=== PATIENT | male | born 1955 | race Caucasian/White ===

== ENCOUNTER 2023-08-29 09:30 | Outpatient (OUT) | payer MEDICARE, SELFPAY ==
[2023-08-29 09:50] LABS: Basophils Percent Auto 1.1 % (0.2-2.0); Eosinophils Absolute Auto 0.2 10^3/uL (0.0-0.7); Eosinophils Percent Auto 5.6 % (0.9-7.0); Hematocrit 42.3 % (42.0-54.0); Hemoglobin 13.7 g/dL (14.0-18.0); Immature Granulocytes Abs Auto 0.01 10^3/uL (0.00-0.03); Immature Granulocytes Pct Auto 0.3 % (0.0-0.5); Lymphocytes Absolute Auto 1.2 10^3/uL (1.2-3.8); Lymphocytes Percent Auto 31.9 % (20.5-60.0); Mean Corpuscular HGB Conc 32.4 g/dL (29.9-35.2); Mean Corpuscular Hemoglobin 31.5 pg (25.9-34.0); Mean Corpuscular Volume 97.2 fL (80.0-94.0); Mean Platelet Volume 9.4 fL (9.5-13.5); Monocytes Absolute Auto 0.5 10^3/uL (0.3-0.8); Monocytes Percent Auto 13.3 % (1.7-12.0); Neutrophils Absolute Auto 1.8 10^3/uL (1.4-6.5); Neutrophils Percent Auto 47.8 % (43.0-75.0); Platelet Count 189 10^3/uL (150-450); Red Blood Count 4.35 10^6/uL (4.70-6.10); Red Cell Distribution Width 12.6 % (11.0-15.0); White Blood Count 3.8 10^3/uL (4.0-11.0)
[2023-08-29 10:14] LABS: Estimated Average Glucose 123 mg/dL; Glycohemoglobin A1C 5.9 % (4.5-6.2)
[2023-08-29 10:16] LABS: Alanine Aminotransferase 38 U/L (16-63); Albumin Globulin Ratio 1.3; Alkaline Phosphatase 89 U/L (46-116); Anion Gap 11.2; Aspartate Amino Transferase 25 U/L (15-37); BUN Creatinine Ratio 21.2; Bilirubin Total 1.1 mg/dL (0.2-1.0); Calcium 8.8 mg/dL (8.5-10.1); Carbon Dioxide 31.4 mmol/L (21.0-32.0); Chloride 106 mmol/L (98-107); Chol HDL Ratio 2.3; Cholesterol 130 mg/dL (<=200); Estimated GFR (African America >60 (>=60); Estimated GFR (Non-African Ame >60 (>=60); Free T3 2.06 pg/mL (2.18-3.98); Globulin 3.1 g/dL; Glucose 107 mg/dL (74-106); HDL Cholesterol 57 mg/dL (40-60); Potassium 4.6 mmol/L (3.5-5.1); Sodium 144 mmol/L (136-145); Thyroid Stimulating Hormone 2.013 uIU/mL (0.358-3.740); Total Protein 7.1 g/dL (6.4-8.2); Triglycerides 35 mg/dL (<=150)
== END 2023-08-29 09:31 | disposition home or self-care (01) ==
LOC: LAB 09:30
PROVIDERS: PCP Family Medicine; Visit Provider Family Medicine
DX: M25.50 Pain in unspecified joint (principal); I10 Essential (primary) hypertension; D12.6 Benign neoplasm of colon, unspecified; E78.5 Hyperlipidemia, unspecified; R73.09 Other abnormal glucose; Z12.5 Encounter for screening for malignant neoplasm of prostate
CPT/HCPCS: 36415; 80053; 80061; 83036; 84436; 84443; 84481; 85025; G0103

== ENCOUNTER 2023-09-10 10:13 | Outpatient (OUT) | payer MEDICARE, SELFPAY ==
[2023-09-10 10:30] LABS: Basophils Percent Auto 0.1 % (0.2-2.0); Eosinophils Percent Auto 0.1 % (0.9-7.0); Hematocrit 38.2 % (42.0-54.0); Hemoglobin 12.9 g/dL (14.0-18.0); Immature Granulocytes Abs Auto 0.07 10^3/uL (0.00-0.03); Lymphocytes Absolute Auto 0.7 10^3/uL (1.2-3.8); Lymphocytes Percent Auto 9.6 % (20.5-60.0); Mean Corpuscular HGB Conc 33.8 g/dL (29.9-35.2); Mean Corpuscular Volume 94.8 fL (80.0-94.0); Mean Platelet Volume 9.7 fL (9.5-13.5); Monocytes Absolute Auto 0.4 10^3/uL (0.3-0.8); Monocytes Percent Auto 5.4 % (1.7-12.0); Neutrophils Absolute Auto 6.1 10^3/uL (1.4-6.5); Neutrophils Percent Auto 83.8 % (43.0-75.0); Platelet Count 169 10^3/uL (150-450); Red Blood Count 4.03 10^6/uL (4.70-6.10); Red Cell Distribution Width 12.3 % (11.0-15.0); White Blood Count 7.3 10^3/uL (4.0-11.0)
[2023-09-10 11:16] LABS: Free T3 1.95 pg/mL (2.18-3.98); Thyroid Stimulating Hormone 0.868 uIU/mL (0.358-3.740)
== END 2023-09-10 10:14 | disposition home or self-care (01) ==
LOC: LAB 10:14
PROVIDERS: PCP Family Medicine; Visit Provider Family Medicine
DX: R53.83 Other fatigue (principal)
CPT/HCPCS: 36415; 84436; 84443; 84481; 85025

== ENCOUNTER 2023-10-17 09:15 | Outpatient (OUT) | payer MEDICARE, SELFPAY ==
[2023-10-17 10:29] LABS: Free T4 0.78 ng/dL (0.76-1.46)
== END 2023-10-17 09:16 | disposition home or self-care (01) ==
LOC: LAB 09:17
PROVIDERS: PCP Family Medicine; Visit Provider Family Medicine
DX: E03.9 Hypothyroidism, unspecified (principal)
CPT/HCPCS: 36415; 84439; 84443

== ENCOUNTER 2023-11-03 14:10 | Outpatient (OUT) | payer MEDICARE, SELFPAY | END 2023-11-03 14:11 | disposition home or self-care (01) | LOC: PST 14:11 | PROVIDERS: PCP Family Medicine; Visit Provider Surgery | DX: Z86.010 Personal history of colon polyps (principal) ==

== ENCOUNTER 2023-11-05 07:00 | Day surgery (SDC) | payer MEDICARE, SELFPAY ==
--- NOTE | 2023-11-05 | OP_ITS ---
OPERATION DATE: 11/05/2023 PREOPERATIVE DIAGNOSIS: Personal history of colon polyps. Family history of colon cancer. POSTOPERATIVE DIAGNOSIS: Normal colonoscopy to cecum. PROCEDURE: Colonoscopy to cecum. SURGEON: Zurdo Chambers M.D. ANESTHESIA: Monitored anesthesia care. ESTIMATED BLOOD LOSS: Zero. INDICATIONS AND CONSENT: Patient is a 67-year-old male presents for colorectal screening. Indications, risks, benefits, alternatives of proceeding with colonoscopy were explained extensively to the patient, including the risks of bleeding, colon perforation or anesthetic complications. All of his questions were answered. Informed consent was obtained. PROCEDURE: Patient brought to the operating room, placed in the left lateral decubitus position. Monitored anesthesia care was provided. Rectal exam was performed which showed no masses or blood. The scope was inserted into the anal canal. Under direct visualization was advanced. With the aid of abdominal compression, it was advanced to the cecum where cecal markings were clearly identified. Prep was noted to be good, but with some vegetable matter throughout the colon that was able to be partially irrigated clear. Upon withdrawal of the scope, mucosal surfaces were carefully examined. There were no mass lesions or polyps. No inflammatory changes or ulcerations. No significant diverticulosis. The scope was retroflexed in the anal canal. There was no significant hemorrhoidal disease. Scope was then withdrawn. Patient tolerated procedure well, was sent to recovery room in good condition. Follow up colonoscopy should be in five years. CC: Marcus Kingsley M.D. [facility]
[2023-11-05 07:00] VITALS: BP 139/67; PULSE 85; RESP 18; TEMP 36.3; O2SAT 95; BMI 30.9
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
[2023-11-05] MEDS: LACTATED RINGER'S SOLUTION 1,000 ML 50 ML IV (07:26)
[2023-11-05 08:14] VITALS: BP 122/72; PULSE 70; RESP 16; O2SAT 98
[2023-11-05 08:32] VITALS: BP 117/63; PULSE 72; RESP 16; O2SAT 98
== END 2023-11-05 08:44 | disposition home or self-care (01) ==
PROVIDERS: PCP Family Medicine; Visit Provider Surgery
PROC: (CPT 45378; principal; 2023-11-05 08:00)
DX: Z86.010 Personal history of colon polyps (principal); Z80.0 Family history of malignant neoplasm of digestive organs; I10 Essential (primary) hypertension; E03.9 Hypothyroidism, unspecified; E66.9 Obesity, unspecified; Z68.31 Body mass index [BMI] 31.0-31.9, adult; Z96.641 Presence of right artificial hip joint
CPT/HCPCS: 45378; J2704

== ENCOUNTER 2024-05-27 17:06 | Emergency (ER) | payer MEDICARE, SELFPAY ==
--- NOTE | 2024-05-27 17:15 | XR_ITS ---
The [address] [address] Patient Name: JORGE PATE MRN: [id number] date: 1955 Sex: M Assigned Patient Location: ED.MAIN Current Patient Location: ER Accession/Order Number: [id number] Exam Date: 05/27/2024 17:30 Report Date: 05/27/2024 18:02 At the request of: GOLDEN AC Procedure: XR lumbar spine 2-3V EXAM: XR lumbar spine 2-3V HISTORY: fall COMPARISON: None. TECHNIQUE: 3 views lumbar spine. FINDINGS: Bones: No radiographic evidence of fracture. Normal vertebral body heights. No aggressive appearing lesion. Alignment: No pathologic listhesis or scoliotic curvature. Degenerative findings: Spondylosis and severe disc desiccation of the lumbar spine.. Additional findings: None. XR/XR lumbar spine 2-3V IMPRESSION: No acute fracture. Electronically authenticated by: RAE ESPINOSA Date: 05/27/2024 18:02
--- NOTE | 2024-05-27 17:15 | XR_ITS ---
The [address] [address] Patient Name: JORGE PATE MRN: [id number] date: 1955 Sex: M Assigned Patient Location: ED.MAIN Current Patient Location: ER Accession/Order Number: [id number] Exam Date: 05/27/2024 17:30 Report Date: 05/27/2024 18:01 At the request of: GOLDEN CA Procedure: XR knee LT 3V IMAGES REVIEWED: XR knee LT 3V COMPARISON: None available. CLINICAL INDICATION: fall FINDINGS/IMPRESSION: 1. No evidence of acute osseous abnormality of the left knee. 2. No significant effusion. 3. Mild tricompartmental degenerative change left knee. 4. Slight anterior knee soft tissue swelling. Electronically authenticated by: CATALINA SCHWAB Date: 05/27/2024 18:01
--- NOTE | 2024-05-27 17:15 | XR_ITS ---
The [address] [address] Patient Name: JORGE PATE MRN: [id number] date: 1955 Sex: M Assigned Patient Location: ED.MAIN Current Patient Location: Accession/Order Number: [id number] Exam Date: 05/27/2024 17:30 Report Date: 05/27/2024 18:03 At the request of: GOLDEN AC Procedure: XR hip LT 2V w/ pelvis IMAGES REVIEWED: XR hip LT 2V w/ pelvis COMPARISON: None available. CLINICAL INDICATION: fall FINDINGS/IMPRESSION: 1. No radiographic evidence of acute osseous abnormality of the left hip/pelvis. 2. Mild-moderate degenerative change left hip. 3. Partially visualized right total hip arthroplasty without evidence of complication. 4. Enthesopathic change left lesser trochanter. 5. Please refer to same-day x-ray L-spine report. 6. Left hip soft tissue swelling. Electronically authenticated by: CATALINA SCHWAB Date: 05/27/2024 18:03
[2024-05-27 17:20] VITALS: BP 145/77; PULSE 68; TEMP 36.4; O2SAT 96; BMI 29.3
--- OUTSIDE RECORDS SUMMARY | 2024-05-27 17:30 | XMS_ITS | CCD ---
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 bleeds. Cardiovascular: normal blood pressure, no chest pain, regular heartbeat, no heart murmur. Respiratory: no shortness of breath, no cough, no asthma, no wheezing. Gastrointestinal: no nausea, no vomiting, no diarrhea, no constipation, no blood in stool, no change in bowel habits, no abdominal pain, no hepatitis. Genitourinary: no kidney stones, no urine infection, no dysuria. Musculoskeletal: no pain, no weakness. Skin: no changing moles, no rash, no skin lumps. Neurologic: no seizures, no epilepsy, no headache. Psychiatric: no emotional or psychiatric problem. Heme/Lymph: no bleeding problems, no anemia, no blood clots, no transfusions. Allergy/Immunologic: no swollen lymph nodes/glands, no IV drug abuse. Other: Additional ROS info: Except as noted in the above Review of Systems and in the History of Present Illness, all other systems have been reviewed and are negative or noncontributory. Physical Exam Vitals & Measurements HR: 72(Peripheral) RR: 16 BP: 126/72 HT: 72 in HT: 182.8 cm WT: 103.8 kg WT: 228.36 lb BMI: 31.06 HEENT: normal conjunctiva, sclera clear, no scleral icterus, EOM intact, PERRLA, oral mucosa moist without lesions. Neck: trachea midline, no mass, symmetric, no thyromegaly or nodules, no adenopathy Respiratory: lungs CTA, respirations non labored. Cardiovascular: regular rate and rhythm, no murmur, no pedal edema or varicosities. Gastrointestinal: soft, non distended, no tenderness, no masses, no palpable hernias, diastasis recti no, no hepatosplenomegaly; normal bs Lymphatic: no cervical adenopathy, no supraclavicular adenopathy. Musculoskeletal: normal gait, digits and nails without infection, nodes, cyanosis, clubbing. Skin: no rashes, no lesions, no ulcers, no subcutaneous nodules, induration. Psychiatric/Neuro: oriented to time, place, person, judgement normal, affect appropriate for age, insight intact, no focal deficits. Tests: , review of old records completed , Discussed surgical options, risks, and possible complications with patient. Assessment/Plan 1. Personal history of colonic polyps (Z86.010: Personal history of colonic polyps) plan colonoscopy under anesthesia, informed consent obtained. 2. Family history of colon cancer in father (Z80.0: Family history of malignant neoplasm of digestive organs) scds Follow-up No qualifying data available Problem List/Past Medical History Ongoing BMI 31.0-31.9,adult Essential hypertension Family history of colon cancer in father History of colon polyps Hypothyroidism Obesity Personal history of colonic polyps Historical No qualifying data Procedure/Surgical History Colonoscopy (08/26/2014), Arthroplasty of right hip. Medications diclofenac sodium 75 mg Oral EC Tab, 75 mg= 1 tab(s), Oral, Daily levothyroxine 25 mcg (0.025 mg) Tab, 25 mcg= 1 tab(s), Oral, Daily lisinopril 40 mg Tab, 40 mg= 1 tab(s), Oral, Daily Allergies Levaquin (Hives) tetracycline (Hives) Social History Alcohol - Denies Alcohol Use, 09/26/2023 Substance Abuse - Denies Substance Abuse, 09/26/2023 Tobacco Never (less than 100 in lifetime) Tobacco Use:. Never Smokeless Tobacco Use:., 09/26/2023 Family History COPD: Father. Heart disease: Mother and Father. Hypertension: Mother. Primary malignant neoplasm of colon: Father. Primary malignant neoplasm of prostate: Father. Stroke: Mother. Immunizations Vaccine Date Status influenza virus vaccine, inactivated 08/12/2023 Recorded SARS-CoV-2 (COVID-19) mRNA BNT-162b2 vax 08/14/2021 Recorded SARS-CoV-2 (COVID-19) mRNA BNT-162b2 vax 12/12/2020 Recorded SARS-CoV-2 (COVID-19) mRNA BNT-162b2 vax 11/20/2020 Recorded [facility] Comment on above: Result Comment: Elec tronically Signed By: KATHYA RUFF, Zurdo Headley\Date and Time Signed: 09/26/23 14:58 EST 01-03-2022 Evaluation note Encounter Date Diagnosis Assessment Notes Dec, Status post right hip replacement (ICD-10 - Z96.641) Dec, Other [facility] at [facility] on 10/08/2021 Doing well Discussed post-op dental prophylaxis. Shared decision made to continue prophylactic antibiotics indefinitely. Follow-up at 1 year post-op for repeat examination and repeat x-rays. Patient instructed to call with any questions or concerns. [facility] Other 03-10-2022 Evaluation note* Encounter Date Diagnosis Assessment Notes Treatment Notes Treatment Clinical Notes Nov, Status post right hip replacement (ICD-10 - Z96.641) Nov, Other [facility] at [facility] on 10/08/2021 Doing well Patient may continue increasing activities as tolerated. Continue taking trbs-rbj-[id number] anti-inflammatories as needed for assistance with swelling and pain associated with the operative extremity. We did discuss prophylactic antibiotics for any invasive procedures and made the mutual decision to take antibiotics prior to invasive procedures moving forward. Follow-up in 6 weeks for repeat examination and repeat x-rays. [facility] Other 02-09-2022 Evaluation note* Encounter Date Diagnosis Assessment Notes Treatment Notes Treatment Clinical Notes Oct, Status post right hip replacement (ICD-10 - Z96.641) Oct, Other [facility] at [facility] on 10/08/2021 Doing well Patient may continue [...] examination and x-rays of the right hip. [facility] Other 01-19-2022 Evaluation note* Encounter Date Diagnosis [...] pathological fracture (ICD-10 - M81.0) Sep, On extermination inspector drug therapy (ICD-10 - Z79.899) Sep, Other 1. Right GEMA Home Medications - DVT prophylaxis: Aspirin - NSAID: Celebrex - Disposition: Same-day discharge Joints Meeting Checklist - Pharmacy: [facility] bed - Approach/Technique : Anterior - Implants: Avenir Complete; G7 - Anesthesia: General - Blocks: Fascia iliac a - Preop Antibiotics: Ancef - TXA: Yes, systemic - Positioning/OR Bed: Supine on [place] bed - Intraop X-ray: Yes - [place]far[place]: [...] elected to proceed with the above surgery. [facility] Other 12-10-2021 Evaluation note* Encounter Date Diagnosis Assessment Notes Treatment Notes Treatment Clinical Notes Aug, Primary osteoarthritis of right hip (ICD-10 - M16.11) Aug, Pre-op examination (ICD-10 - Z01.818) Aug, Age-related osteoporosis without current pathological fracture (ICD-10 - M81.0) Aug, On extermination inspector drug therapy (ICD-10 - Z79.899) Aug, Other 1. Right GEMA - DVT prophylaxis: Aspirin - Antibiotics: Ancef - NSAID: Celebrex - Implants: Avenir Complete; G7 - Disposition: Same day discharge 2. Preop screening labs will be ordered including: - hemoglobin: 14.2 at [place] on 08/07/2021 - serum albumin: 4.0 at [place] on 08/07/2021 - 25-OH Vit D - HgbA1c: 5.5 at [place] on 08/07/2021 - serum cotinine - MRSA [...] or absent clearances could delay their surgery. [facility] Other Evaluation + Plan note No data available for this section General Surgery [facility] Evaluation noteNo assessment information available [facility] Work Phone: Hishsig general Narrative - Reported* Type Description Date Medical History hypertension [facility] Other Hiswyvf general Narrative - Reported* Type Description Date Medical History hypertension Surgical History [facility] [employer] [facility] Other Hospital Discharge instructions No data available for this section General Surgery [place] Progress note No data available for this section General Surgery [place] Summary Purpose Family History No Family History Records Found Relationship Condition Age at Onset Recorded Date/T masha father Malignant neoplasm of colon Unknown Pulmonary emphysema Unknown Glaucoma Unknown Not Specified Osteoporosis Unknown Hypertension Unknown Diabetes mellitus Unknown Advance Directives No Advanced Directives Records Found Advance Directive Response Recorded Date/ Time Advance Directives No August 10:56am Additional Source Comments (unrecognized sect ion and content) No Status Records FoundNo Status Records FoundNo Status Records FoundNo Status Records Found INFORMATION SOURCE (unrecogn ized section and content) DATE CREATED AUTHOR 03/11/2018 [facility] DATE CREATED AUTHOR AUTHOR'S ORGANIZ ATION 09/11/2022 [facility] DATE CREATED AUTHOR AUTHOR'S ORGANIZ ATION 11/14/2023 Khan Hockley [facility] DATE CREATED AUTHOR AUTHOR'S ORGANIZ ATION 11/25/2023 [facility] REASON FOR VISIT (unrecogniz ed section and content) Right Hip PainH&PRecheck Rig ht HipRecheck Right HipRecheck Right Hip Care Teams (unrecognized sec tion and content) Team Status: Inactive Member Role Status Dates [...] BE BASED ON THE PRIMARY CLINICAL RECORDS. [employer] [facility]. provides no warranty or guarantee of the accuracy or completeness of information in this document.
--- NOTE | 2024-05-27 17:39 | ED.FALL1 ---
HPI HPI - Fall General Chief Complaint: Fall Stated Complaint: FALL, LOWER LEFT EXTREMITY PAIN Time Seen by Provider: 05/27/24 17:15 Source: patient Mode of arrival: walk-in Limitations: no limitations History of Present Illness HPI Narrative: 68-year-old male presents here with a chief complaint of left knee pain. Patient states he slipped off a step ladder he was proximately 5 foot in the air and his foot got stuck in the wrong and he twisted and fell to the ground. Denies any head or neck pain. States he did more of a rolling action and rolled off of the ladder onto the ground. Presents today with only knee pain. He has no known lower lumbar pain swelling or other injury. Patient denies head or neck pain. He is alert and oriented. The injury occurred several hours prior to arrival. He states he came here for evaluation because his daughter told him he needed to be evaluated. No acute swelling or deformity appreciated. Related Data Home Medications ?Medication ?Instructions ?Recorded ?Confirmed diclofenac sodium 75 mg 75 mg PO DAILY 11/03/23 11/03/23 tablet,delayed release liothyronine 5 mcg tablet 5 mcg PO DAILY 11/03/23 11/03/23 lisinopril 40 mg tablet 40 mg PO DAILY 11/03/23 11/03/23 Allergies Allergy/AdvReac Type Severity Reaction Status Date / Time levofloxacin [From Levaquin] Allergy Severe Hives Verified 05/27/24 17:20 tetracycline Allergy Severe Hives Verified 05/27/24 17:20 Opioid HPI Opioid Management Most Recent Pain and Opioid Data: Last Pain Scale 3 05/27/24 17:25 Review of Systems ROS Narrative All Systems are negative except as noted/marked.All systems reviewed and otherwise negative PFSH PFS Medical History (Updated 05/27/24 @ 18:12 by Joellen Santos) Obesity ?E66.9 - Obesity, unspecified (ICD-10) Hypothyroidism (acquired) ?E03.9 - Hypothyroidism, unspecified (ICD-10) Hypertension ?I10 - Essential (primary) hypertension (ICD-10) Polyp of colon ?K63.5 - Polyp of colon (ICD-10) Surgical History (Updated 10/27/23 @ 13:30 by Michelle Regan NP) History of total hip replacement ?Z96.649 - Presence of unspecified artificial hip joint (ICD-10) H/O colonoscopy ?Z98.890 - Other specified postprocedural states (ICD-10) Family History (Updated 10/27/23 @ 13:30 by Michelle Regan NP) Other Family history of COPD (chronic obstructive pulmonary disease) Family history of cancer Family history of hypertension Family history of stroke Heart disease Social History (Updated 11/05/23 @ 07:14 by Ramandeep Michaud) Within the past year, how often did you have a drink containing alcohol: never Score interpretation: A score less than 4 is consistent with normal alcohol consumption. 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 General: The patient appears well and in no apparent distress. Patient is resting comfortably on cart. Skin: Warm, dry, no pallor noted. There is no rash noted. Head: Normocephalic, atraumatic Eye: Normal conjunctiva, no drainage, EOMI. PERRL Ears, Nose, Mouth, and Throat: oral mucosa is moist. Nares patent. Mouth without vesicles. Ear canals patent. Tm's without Erythema Cardiovascular: Regular Rate and Rhythm Respiratory: Patient is in no distress, no accessory muscle use, lungs are clear to auscultation, no wheezing, rales or rhonchi Musculoskeletal: No acute redness swelling or dislocation to the left knee, full range of motion, no step-offs , the patient has no evidence of calf tenderness, no pitting edema, symmetrical pulses noted bilaterally Neurological: A&O x4, normal speech Psychiatric: Cooperative Constitutional Vital Signs, click to edit/add: Last Vital Signs Temp 97.6 F 05/27/24 17:20 Pulse 68 05/27/24 17:20 Resp 05/27/24 17:20 BP 145/77 H 05/27/24 17:20 Pulse Ox 96 05/27/24 17:20 O2 Del Method Room Air 05/27/24 17:20 Course Vital Signs Vital signs: Vital Signs Temperature 97.6 F 05/27/24 17:20 Pulse Rate 68 05/27/24 17:20 Respiratory Rate 20 05/27/24 17:20 Blood Pressure 145/77 H 05/27/24 17:20 Pulse Oximetry 96 05/27/24 17:20 Oxygen Delivery Method Room Air 05/27/24 17:20 Temperature 97.6 F 05/27/24 17:20 Pulse Rate 68 05/27/24 17:20 Respiratory Rate 20 05/27/24 17:20 Blood Pressure 145/77 H 05/27/24 17:20 Pulse Oximetry 96 05/27/24 17:20 Oxygen Delivery Method Room Air 05/27/24 17:20 MDM - Fall MDM Narrative Medical decision making narrative: 68-year-old male presents here with a chief complaint of left knee pain. Patient states he slipped off a step ladder he was proximately 5 foot in the air and his foot got stuck in the wrong and he twisted and fell to the ground. Denies any head or neck pain. States he did more of a rolling action and rolled off of the ladder onto the ground. Presents today with only knee pain. He has no known lower lumbar pain swelling or other injury. Patient denies head or neck pain. He is alert and oriented. The injury occurred several hours prior to arrival. He states he came here for evaluation because his daughter told him he needed to be evaluated. No acute swelling or deformity appreciated. Here with chief complaint of fall off of a ladder. He complains of pain to the knee. Denies any pain elsewhere. X-rays of the hip lumbar and knee were performed all were negative. Patient denied the need for pain medications he took Tylenol prior to coming today. He will follow-up with his primary care physician. Patient agrees with plan of care. Diagnosis of fall, knee pain. Differential Diagnosis Differential diagnosis: Likely compression fracture Medical Records Attestation: I reviewed the patient's medical records. Imaging Data knee: Attestation: I have reviewed the pertinent imaging results. Radiologist's impression: ITS Impressions Lumbar Spine X-Ray 05/27/24 17:15 IMPRESSION: No acute fracture. Electronically authenticated by: RAE ESPINOSA Date: 05/27/2024 18:02 lumbar: Radiologist's impression: ITS Impressions Lumbar Spine X-Ray 05/27/24 17:15 IMPRESSION: No acute fracture. Electronically authenticated by: RAE ESPINOSA Date: 05/27/2024 18:02 Discharge Plan Discharge Chief Complaint: Fall Clinical Impression: Acute knee pain, Fall Patient Disposition: Home, Self-Care Time of Disposition Decision: 18:12 Condition: Good Prescriptions / Home Meds: No Action diclofenac sodium 75 mg tablet,delayed release (DR/EC) 75 mg PO DAILY lisinopril 40 mg tablet 40 mg PO DAILY liothyronine 5 mcg tablet 5 mcg PO DAILY Print Language: Mexican Instructions: Fall Prevention for Older Adults (ED), Knee Pain (ED), Fall Prevention (ED) Referrals: Marcus Kingsley MD [Primary Care Provider] - 1 week Discharge Date/Time: 05/27/24 18:27
== END 2024-05-27 18:27 | disposition home or self-care (01) ==
PROVIDERS: Emergency Provider Emergency Medicine; PCP Family Medicine
DX: M25.562 Pain in left knee (principal); M47.816 Spondylosis without myelopathy or radiculopathy, lumbar region
CPT/HCPCS: 72100; 73502; 73562; 99284

== ENCOUNTER 2024-09-03 08:56 | Outpatient (OUT) | payer MEDICARE, SELFPAY ==
--- OUTSIDE RECORDS SUMMARY | 2024-09-03 09:04 | XMS_ITS | CCD ---
Author Organization [facility] Care Team Providers Care Jack Frame Tender Name Role Phone ROHIT ARREOLA Unavailable Unavailable Mac Araya II FLAKO, DR VALENZUELA Admitting Unavailable FLAKO, DR VALENZUELA Attending Unavailable FLAKO, DR VALENZUELA Primary Care Unavailable FLAKO, DR VALENZUELA Consulting Unavailable FLAKO, DR VALENZUELA Admitting Unavailable FLAKO, DR VALENZUELA Attending Unavailable FLAKO, DR VALENZUELA Primary Care Unavailable FLAKO, DR VALENZUELA Consulting Unavailable MD Bianca Kingsley Primary Care Provider MD Mac Araya II Attending Provider Bianca Kingsley Primary Care Physician Zurdo RASHEED Attending Unavailable Bianca Kingsley Referring Unavailable Zurdo RASHEED Attending Unavailable MD Bianca Kingsley Primary Care Provider MD Mac Araya II Attending Provider [phone] Bianca Kingsley Primary Care Unavailable Mac Araya II Admitting UnavailMac Mistry II Attending Bianca Wilkes Primary Care Unavailable Mac Araya II Admitting Unavailabl e [place] palafox II Attending Unavailabl e [place] palafox II Admitting Unavailanaid e Mac Araya II Attending UnavailBianca Nowak Primary Care Unavailable Allergies Allergy Classification Reported Allergen(s) Allergy Type Date of Onset Reaction(s) Facility (8 sources) Tetracycline; Translations: [tetracycline] Drug Allergy 2 rash, [facility] (disorder) [facility] (1 source) Tetracycline Drug Allergy 4 [facility] Repository (2 sources) levoFLOXacin; Translations: [levofloxacin] Drug Allergy Weal (disorder) [facility] [place] (1 source) Tetracycline Drug Allergy [facility] Repository Medications Current Medications Medication Drug Class(es) Dates Sig (Normalized) Sig (Original) acetaminophen 500 mg oral tablet (3 sources) Start: 10-03-2021 take 2 tablets by mouth every eight hours for pain Acetaminophen 500 MG 2 tablets for pain Orally every 8 hrs for 30 days MED TO BED UPON DISCHARGE DOS:10/08/2021 Sep, Active cholecalciferol 0.01 mg oral capsule (3 sources) Vitamin D Start: 09-26-2021 take 1 capsule by mouth once daily Cholecalciferol (Vitamin D3) (Vitamin D3) 10 mcg (400 unit) Capsule Active 100 MCG PO Daily September 26, 2021 1:00am diclofenac sodium 0.01 mg/mg topical gel (10 sources) Nonsteroidal Anti-inflammatory Drug Start: 06-21-2024 Diclofenac Sodium Active 2 GM TOPICAL as directed 10 14June 21, 2024 12:00am apply small amount to affected area 4-5 times per day Start: 09-26-2021 take 75 mg by mouth once daily at bedtime Diclofenac Sodium Active 75 MG PO Daily at bedtime September 26, 2021 1:00am take 1 tablet by wesley th every twelve hours Diclofenac Sodium 75 MG 1 tablet as needed Orally Twice a day Not-Taking fexofenadine / Pseudoephedrine (3 sources) alpha-Adrenergic Agonist, Histamine-1 Receptor Antagonist Start: 09-26-2021 take 1 tablet by mouth once daily in the morning, then take 1 tablet by mouth every twenty-four hours Fexofenadine-Pseudoephedrine (Ifeoma-D 24 Hour) 180-240 mg Tablet Extended Release 24 Hr Active 1 TAB PO Every morning September 26, 2021 1:00am Start: 09-26-2021 take 1 tablet by wesley th once daily in the morning, then take 1 tablet by mouth every twenty-four hours Fexofenadine-Pseudoephedrine (Ifeoma-D 24 Hour) 180-240 mg Tablet Extended Release 24 Hr Active 1 TAB PO Every morning September 26, 2021 12:00am levothyroxine sodium 0.025 mg oral tablet (1 source) l-Thyroxine Start: 09-26-2023 take 1 tablet by mouth once daily levothyroxine 25 mcg (0.025 mg) Tab 25 mcg = 1 tab(s), Oral, Daily, Refills(s) 0 Start Date: 09/26/23 Status: Ordered liothyronine (2 sources) l-Triiodothyronine Start: 06-21-2024 Liothyronine Active MCG PO June 21, 2024 12:00am Multivitamin-Mineral s-Lutein (Centrum Silver) Tablet (3 sources) Start: 09-26-2021 take 1 tablet by mouth once daily Multivitamin-Minera ls-Lutein (Centrum Silver) Tablet Active 1 TAB PO Daily September 26, 2021 1:00am Start: 09-26-2021 take 1 tablet by wesley th once daily Eaerpziebnqg-Zoetnmqq-Ttevuz (Centrum Silver) Tablet Active 1 TAB PO Daily September 26, 2021 12:00am Completed/Discontinued Medications Medication Drug Class(es) Dates Sig (Normalized) Sig (Original) amoxicillin 500 mg oral tablet (2 sources) Penicillin-class Antibacterial Start: 11-06-2023 End: 06-21-2024 take 2000 mg by mouth once Amoxicillin Discontinued 2000 MG PO once 4 November 06, 2023 1:00am June 21, 2024 9:29am aspirin 81 mg oral tablet (4 sources) [...] TO BED UPON DISCHARGE DOS:10/08/2021 Sep, Not-Taking docusate sodium 50 mg / sennosides, retirement 8.6 mg oral tablet (4 sources) Start: [...] Sep, Not-Taking lisinopril 40 mg oral tablet (9 sources) Angiotensin Converting Enzyme Inhibitor Start: 09-17-2023 take 1 tablet by mouth once daily Start: 09-26-2021 take 20 mg by mouth once daily at bedtime Lisinopril Active 20 MG PO Daily at bedtime September 26, 2021 1:00am take 1 tablet by wesley th every [...] DISCHARGE DOS:10/08/2021 Sep, Not-Taking polyethylene glycol 3350 41189 mg powder for oral solution (4 sources) [...] days MED TO BED UPON DISCHARGE DOS:10/08/2021 19 Sep, 2021 Not-Taking Problems Active Problems Problem Classification Problem [...] hip joint] Chronic Other connective tissue disease (6 sources) Presence of right artificial hip joint; Translations: [Hip joint replacement] Onset: 10-24-2021 Resolved: 01-03-2022 Chronic Other connective tissue disease (2 sources) History of total hip arthroplasty; Translations: [Presence of right artificial hip joint] 11-19-2023 Chronic Other connective tissue disease (2 sources) Iliotibial band friction syndrome of left knee; Translations: [Iliotibial band syndrome, left leg] 06-21-2024 Episodic Other connective tissue disease (3 sources) Iliotibial band syndrome, left leg; Translations: [Other disorders of muscle, ligament, and fascia] Onset: 08-17-2024 06-21-2024 Episodic Other non-traumatic joint disorders (5 sources) Pain in right hip joint; Translations: [Pain in right hip] Episodic Other non-traumatic joint disorders (1 source) Pain in unspecified joint; Translations: [PAIN IN UNSPECIFIED JOINT] Onset: 09-04-2022 Episodic Other non-traumatic joint disorders (3 sources) Pain in left knee; Translations: [Left knee pain] Onset: 06-21-2024 06-21-2024 Episodic Other nutritional; endocrine; and metabolic disorders [...] 05-05-2017 Episodic Other aftercare (2 sources) 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 Onset: 08-24-2021 Resolved: 10-03-2021 Episodic Results Test Name Value Interpretation Reference Range Facility XR hip RT min 2V(w/wo pelvis )*on 06-21-2024 XR hip RT min 2V(w/wo pelvis)* [facility] [address] [place] [address] XRay Report Signed Patient: John Guajardo MR#: [id number] : 1955 Acct:[id number] Age/Sex: 68 / M ADM Date: 06/21/24 [place] [facility] [place]: Type: [facility] Attending Dr: Mac Araya II, MD Copies to: Mac Araya MD Ordering Provider: Mac Araya MD Date of Service: 06/21/24 XR/XR hip RT min 2V(w/wo pelvis)*: Z96.641 - Presence of right artificial hip joint RIGHT HIP - 2 views: CLINICAL HISTORY: Fell off ladder 3 weeks ago. COMPARISON: Hip series 11/20/2023 FINDINGS: Right GEMA without radiographic complication. Mild degenerative changes of the left hip. Additional degenerative changes seen involving the visualized lower lumbar spine, SI joints and pubic symphysis. XR/XR hip RT min 2V(w/wo pelvis)* IMPRESSION: RIGHT GEMA WITHOUT RADIOGRAPHIC COMPLICATION.. Impression dictated by: Alphonso Sims Jr. D.O.06/21/2024 1:03 PM Dictation Location: RADIO-PC-12 Transcribed By: MOLLY 06/21/24 1303 Dictated By: Alpohnso Sims Jr, DO 06/21/24 1302 Signed By: 06/21/24 1303 Normal [facility] XR knee LT 4V*on 06-21-2024 XR knee LT 4V* [facility] [address] [place] [address] XRay Report Signed Patient: John Guajardo MR#: [id number] : 1955 Acct:[id number] Age/Sex: 68 / M ADM Date: 06/21/24 [place]: [facility] [place]: Type: [facility] Attending Dr: Mac Araya II, MD Copies to: Mac Araya MD Ordering Provider: Mac Araya MD Date of Service: 06/21/24 XR/XR knee LT 4V*: M25.562 - Pain in left knee LEFT KNEE - 4 views CLINICAL HISTORY: Fell off ladder 3 weeks ago. Left anterior/medial knee pain. COMPARISON: None FINDINGS: Small joint effusion. Mild degenerative changes without acute bony process. XR/XR knee LT 4V* IMPRESSION: MILD DEGENERATIVE CHANGES WITHOUT ACUTE BONY PROCESS. Impression dictated by: Alphonso Sims Jr. D.O.06/21/2024 1:02 PM Dictation Location: RADIO-PC-12 Transcribed By: MOLLY 06/21/24 1302 Dictated By: Alphonso Sims Jr, DO 06/21/24 1302 Signed By: 06/21/24 1302 Normal [facility] XR hip RT min 2V(w/wo pelvis )*on 11-20-2023 XR hip RT min 2V(w/wo pelvis)* [facility] [place] [address] [place] [address] XRay Report Signed Patient: John Guajardo MR#: [id number] : 1955 Acct:[id number] Age/Sex: 67 / M ADM Date: 11/20/23 [place] [facility] [place]: Type: [facility] Attending Dr: Mac Araay II, MD Copies to: Mac Araya MD [...] COMPLICATION.. Impression dictated by: Alphonso Sims Jr., D.O.11/20/2023 4:10 PM Dictation Location: [place] [address] Transcribed By: MOLLY 11/20/23 1610 Dictated By: Alphonso Sims Jr, DO 11/20/23 1610 Signed By: 11/20/23 1610 Normal [facility] Outside Colonoscopyon 2023 Outside Colonoscopy [id number]#1.00TIFF Normal [facility] Reminderson 11-06-2023 Reminders - From: Laila Cheng LPN To: GSN - Clinical; Sent: 11/06/2023 14:00:57 EST Show up: 10/05/2028 07:00:00 EST Subject: colonoscopy recall Due Date/Time: 11/05/2028 07:00:00 EST Reminder/Recall Patient due for surveillance colonoscopy 11/05/2028 due to history of colon polyps and family history of colon cancer. Normal [facility] Admission Noteon 09-29-2023 Admission Note [id number]#1.00TIFF [facility] Consent for Procedure/Surger yon 09-29-2023 Consent for Procedure/Surgery [id number]#1.00TIFF [facility] Facesheeton 09-29-2023 Facesheet [id number]#1.00TIFF [facility] Ambulatory Visit Summaryon 0 09-26-2023 Ambulatory Visit Summary JOHN GUAJARDO :1955 Visit Date:09/26/2023 Ambulatory Visit Instructions Your Care Team Attending Physician - KATHYA RUFF, Zurdo Munguia Primary Care Physician - Bianca Kingsley MD Referring Physician - Bianca Kingsley MD This [...] you for choosing us for your care. Normal [facility] Physician Referralon 023 Physician Referral [id number]#1.00TIFF Normal [facility] Provider Letteron 09-12-2023 Provider Letter (Inserted Image. Avril ble to display) September 12, 2023 JOHN ALT [address] [place] [address] : 1955 Dear John , We have been trying to reach you with no success. It is important that you return our call regarding scheduling your consultation appointment per referral by upon receiving this letter. Also, at the time of your call, please provide us with your current information. Thank you for your prompt attention to this matter. Sincerely, [facility] General Surgery [phone] Normal [facility] Physician Referralon 023 Physician Referral [id number]#1.00TIFF Normal [facility] Physician Referralon 023 Physician Referral [id number]#1.00TIFF Normal [facility] OCC BLD IMMUNO SCREENon 08-15 OCCULT BLOOD Negative Normal NEGATIVE [facility] Comment on above: Performed By: #### O BSCRN #### [facility] [address] [place], [place] [address] Dr. Indu Woodall CEAon 08-15-2022 CEA 2.0 ng/mL Normal 0.0-4.7 [facility] Comment on above: Result Comment: Nons mokers <3.9 Smokers <5.6 . [facility] [employer] Electrochemiluminescence Immunoassay (ECLIA) . Values obtained with different assay methods or kits cannot be used interchangeably. Results cannot be interpreted as absolute evidence of the presence or absence of malignant disease. Performed By: #### C EA. #### [facility] [address] [place] [address] Dr. Indu Woodall INSULINon 08-14-2022 Insulin 18.0 uIU/mL Normal 2.6-24.9 [facility] Comment on above: Performed By: #### I NSULIN #### [facility] [address] [place] [address] Dr. Indu Woodall CBC AUTO DIFFon 08-13-2022 BASO # 0.1 103/ul Normal 0.0-0.1 [facility] Comment on above: Performed By: #### C BC #### [facility] [address] [place] [address] Dr. Indu Woodall Basophils/100 WBC (Bld) 1.5 % Normal 0.2-2.0 [facility] Comment on above: Performed By: #### C BC #### [facility] [address] [place] [address] Dr. Indu Woodall EO # 0.2 103/ul Normal 0.0-0.7 [facility] Comment on above: Performed By: #### C BC #### [facility] [address] [place] [address] Dr. Indu Woodall Eosinophils/100 WBC (Bld) 4.0 % Normal 0.9-7.0 [facility] Comment on above: Performed By: #### C BC #### [facility] [address] [place] [address] Dr. Indu Woodall Erythrocyte distribution width (RBC) [Ratio] 12.9 % Normal 11.0-15.0 [facility] Comment on above: Performed By: #### C BC #### [facility] [address] [place] [address] Dr. Indu Woodall Hematocrit (Bld) [Volume fraction] 40.9 % Critically low 42.0-54.0 [facility] Comment on above: Performed By: #### C BC #### [facility] [address] [place] [address] Dr. Indu Woodall Hemoglobin (Bld) [Mass/Vol] 13.9 g/dL Critically low 14.0-18.0 [facility] Comment on above: Performed By: #### C BC #### [facility] [address] [place] [address] Dr. Indu Woodall IG # 0.02 10e3/ul Normal 0.00-0.03 [facility] Comment on above: Performed By: #### C BC #### [facility] [address] [place] [address] Dr. Indu Woodall IG % 0.5 % Normal 0.0-0.5 [facility] Comment on above: Performed By: #### C BC #### [facility] [address] [place] [address] Dr. Indu Woodall LYMPH # 1.2 103/ul Normal 1.2-3.8 [facility] Comment on above: Performed By: #### C BC #### [facility] [address] [place] [address] Dr. Indu Woodall Lymphocytes/100 WBC (Bld) 30.2 % Normal 20.5-60.0 [facility] Comment on above: Performed By: #### C BC #### [facility] [address] [place] [address] Dr. Indu Woodall MANUAL DIFF REQ NO Normal [facility] Comment on above: Performed By: #### C BC #### [facility] [address] [place] [address] Dr. Indu Woodall MCH (RBC) [Entitic mass] 31.8 pg Normal 25.9-34.0 [facility] Comment on above: Performed By: #### C BC #### [facility] [address] [place] [address] Dr. Indu Woodall MCHC (RBC) [Mass/Vol] 34.0 g/dL Normal 29.9-35.2 [facility] Comment on above: Performed By: #### C BC #### [facility] [address] [place] [address] Dr. Indu Woodall MCV (RBC) [Entitic vol] 93.6 fL Normal 80.0-94.0 [facility] Comment on above: Performed By: #### C BC #### [facility] [address] [place] [address] [address] Indu Woodall MONO # 0.5 103/ul Normal 0.3-0.8 [facility] Comment on above: Performed By: #### C BC #### [facility] [address] [place] [address] [address] Indu Woodall Monocytes/100 WBC (Bld) 11.4 % Normal 1.7-12.0 [facility] Comment on above: Performed By: #### C BC #### [facility] [address] [place] [address] [address] Indu Woodall NEUT # 2.1 103/ul Normal 1.4-6.5 [facility] Comment on above: Performed By: #### C BC #### [facility] [address] [place] [address] Dr. Indu Woodall Neutrophils/100 WBC (Bld) 52.4 % Normal 43.0-75.0 [facility] Comment on above: Performed By: #### C BC #### [facility] [address] [place] [address] [address] Indu Woodall Platelet mean volume (Bld) [Entitic vol] 9.4 fL Critically low 9.5-13.5 [facility] Comment on above: Performed By: #### C BC #### [facility] [address] [place] [address] Dr. Indu Woodall PLT 181 103/ul Normal 150-450 [facility] Comment on above: Performed By: #### C BC #### [facility] [address] [place] [address] [address] Indu Woodall RBC 4.37 106/ul Critically low 4.70-6.10 [facility] Comment on above: Performed By: #### C BC #### [facility] [address] [place] [address] [address] Indu Woodall WBC 4.0 103/ul Normal 4.0-11.0 [facility] Comment on above: Performed By: #### C BC #### [facility] [address] [place] [address] Dr. Indu Woodall GLYCOHEMOGLOBIN A1Con 2021 ADA RECOMMENDATION SEE BELOW Normal [facility] Comment on above: Result Comment: ADA RECOMMENDED LIMIT 4.0 - 6.0 ADA THERAPEUTIC TARGET < 7.0 ACTION SUGGESTED > 7.0 Performed By: #### A 1C #### [facility] [address] [place] [address] Dr. Indu Woodall Glucose [Mass/Vol] 120 mg/dL Normal [facility] Comment on above: Performed By: #### A 1C #### [facility] [address] [place] [address] Dr. Indu Woodall HbA1c (Bld) [Mass fraction] 5.8 % Normal 4.5-6.2 [facility] Comment on above: Performed By: #### A 1C #### [facility] [address] [place] [address] Dr. Indu Woodall LIPID PROFILEon 08-13-2022 CHOL-HDL RATIO NORM SEE BELOW Normal [facility] Comment on above: Result Comment: 3.3 - 4.4 LOW RISK 4.4 - 7.1 AVERAGE RISK 7.1 - 11.0 MODERATE RISK >11.0 HIGH RISK Performed By: #### U AC, LIPID, CMP #### [facility] [address] [place] [address] Dr. Indu Woodall Cholesterol [Mass/Vol] 114 mg/dL Normal <=200 [facility] Comment on above: Performed By: #### U AC, LIPID, CMP #### [facility] [address] [place] [address] Dr. Indu Woodall Cholesterol in HDL [Mass/Vol] 54 mg/dL Normal 40-60 [facility] Comment on above: Performed By: #### U AC, LIPID, CMP #### [facility] [address] [place] [address] Dr. Indu Woodall Cholesterol in LDL [Mass/Vol] 52.2 mg/dL Normal [facility] Comment on above: Performed By: #### U AC, LIPID, CMP #### [facility] [address] [place] [address] [address] Indu Woodall Cholesterol.total/ Cholesterol in HDL [Mass ratio] 2.1 {ratio} Normal [facility] Comment on above: Performed By: #### U AC, LIPID, CMP #### [facility] [address] [place] [address] [address] Idnu Woodall HDL NORMAL > or = 60 mg/dl - LO W CARDIOVASCULAR RISK <40 mg/dl - HIGH CARDIOVASCULAR RISK Normal [facility] Comment on above: Performed By: #### U AC, LIPID, CMP #### [facility] [address] [place] [address] [address] Indu Woodall LDL CALC NORMAL SEE BELOW Normal [facility] Comment on above: Result Comment: <100 mg/dl OPTIMAL 100 - 129 mg/dl NEAR OR ABOVE OPTIMAL 130 - 159 mg/dl BORDERLINE HIGH 160 - 189 mg/dl HIGH >190 mg/dl VERY HIGH Performed By: #### U AC, LIPID, CMP #### [facility] [address] [place] [address] [address] Indu Woodall Triglyceride [Mass/Vol] 39 mg/dL Normal <=150 [facility] Comment on above: Performed By: #### U AC, LIPID, CMP #### [facility] [address] [place] [address] [address] Indu Woodall VLDL CALC 7.8 mg/dL Normal [facility] Comment on above: Performed By: #### U AC, LIPID, CMP #### [facility] [address] [place] [address] [address] Indu Woodall PROF 14(COMP METB)on 022 Albumin [Mass/Vol] 4.0 g/dL Normal 3.4-5.0 [facility] Comment on above: Performed By: #### U AC, LIPID, CMP #### [facility] [address] [place] [address] Dr. Indu Woodall Albumin/Globulin [Mass ratio] 1.3 {ratio} Normal [facility] Comment on above: Performed By: #### U AC, LIPID, CMP #### [facility] [address] [place] [address] [address] Indu Woodall ALP [Catalytic activity/Vol] 93 U/L Normal 46-116 [facility] Comment on above: Performed By: #### U AC, LIPID, CMP #### [facility] [address] [place] [address] [address] Indu Woodall ALT [Catalytic activity/Vol] 36 U/L Normal 16-63 [facility] Comment on above: Performed By: #### U AC, LIPID, CMP #### [facility] [address] [place] [address] [address] Indu Woodall Anion gap [Moles/Vol] 9.2 mmol/L Normal [facility] Comment on above: Performed By: #### U AC, LIPID, CMP #### [facility] [address] [place] [address] Dr. Indu Woodall AST [Catalytic activity/Vol] 25 U/L Normal 15-37 [facility] Comment on above: Performed By: #### U AC, LIPID, CMP #### [facility] [address] [place] [address] Dr. Indu Woodall Bilirubin [Mass/Vol] 0.9 mg/dL Normal 0.2-1.0 [facility] Comment on above: Performed By: #### U AC, LIPID, CMP #### [facility] [address] [place] [address] Dr. Indu Woodall Calcium [Mass/Vol] 9.1 mg/dL Normal 8.5-10.1 [facility] Comment on above: Performed By: #### U AC, LIPID, CMP #### [facility] [address] [place] [address] Dr. Indu Woodall Chloride [Moles/Vol] 105 mmol/L Normal 98-107 [facility] Comment on above: Performed By: #### U AC, LIPID, CMP #### [facility] [address] [place] [address] Dr. Indu Woodall CO2 [Moles/Vol] 32.2 mmol/L Critically high 21.0-32.0 [facility] Comment on above: Performed By: #### U AC, LIPID, CMP #### [facility] [address] [address] [address] Indu Woodall Creatinine [Mass/Vol] 0.91 mg/dL Normal 0.70-1.30 [facility] Comment on above: Performed By: #### U AC, LIPID, CMP #### [facility] [address] [address] [address] Indu Woodall EGFR-AF TOGOLESE >60 Normal >=60 [facility] Comment on above: Performed By: #### U AC, LIPID, CMP #### [facility] [address] [address] [address] Indu Woodall EGFR-NON AF TOGOLESE >60 Normal >=60 [facility] Comment on above: Performed By: #### U AC, LIPID, CMP #### [facility] [address] [address] [address] Indu Woodall Globulin (S) [Mass/Vol] 3.2 g/dL Normal [facility] Comment on above: Performed By: #### U AC, LIPID, CMP #### [facility] [address] [address] [address] Indu Woodall Glucose [Mass/Vol] 106 mg/dL Normal 74-106 [facility] Comment on above: Performed By: #### U AC, LIPID, CMP #### [facility] [address] [address] [address] Indu Woodall Potassium [Moles/Vol] 4.4 mmol/L Normal 3.5-5.1 [facility] Comment on above: Performed By: #### U AC, LIPID, CMP #### [facility] [address] [address] [address] Indu Woodall Protein [Mass/Vol] 7.2 g/dL Normal 6.4-8.[address] [facility] Comment on above: Performed By: #### U AC, LIPID, CMP #### [facility] [address] [address] [address] Indu Woodall Sodium [Moles/Vol] 142 mmol/L Normal 136-[address] [facility] Comment on above: Performed By: #### U AC, LIPID, CMP #### [facility] [address], [place] [address] Dr. Indu Woodall Urea nitrogen [Mass/Vol] 20.0 mg/dL Critically high 7.0-18.0 [facility] Comment on above: Performed By: #### U CA, LIPID, CMP #### [facility] [address], [place] [address] Dr. Indu Woodall Urea nitrogen/Creatinin e [Mass ratio] 22.0 mg/mg Normal [facility] Comment on above: Performed By: #### U AC, LIPID, CMP #### [facility] [address], [place] [address] Dr. Indu Woodall URIC ACID SERUMon 08-13-2022 Urate [Mass/Vol] 5.0 mg/dL Normal 3.5-7.2 [facility] Comment on above: Performed By: #### U AC, LIPID, CMP #### [facility] [address], [place] [address] Dr. Indu Woodall ED PROVIDERon 05-05-2017 [facility] NOTES Normal [facility] NOTES Normal [facility] NURSING NOTEon 05-05-2017 [facility] NOTES Normal [facility] NOTES Normal [facility] XR CHEST PA 1 VIEWon 017 XR [...] No focal significant bony abnormality. : Normal [facility] Vital Signs Date Time Vital Sign Value Performing Clinician Facility 06-21-2024 09:28-0400 Body height 180.34 cm MD Bianca Kingsley Work Phone: [facility] 06-21-2024 09:28-0400 Body mass index (BMI) [Ratio] 30.7 kg/m2 MD Bianca Kingsley Work Phone: [facility] 06-21-2024 09:28-0400 Body weight 99.9 kg MD Bianca Kingsley Work Phone: [facility] 09-26-2023 14:17-0500 Blood Pressure Location Zurdo NILL [facility] [place] 09-26-2023 14:17-0500 Diastolic blood pressure 72 mm[Hg] Zurdo NILL [facility] [place] 09-26-2023 14:17-0500 Heart rate 72 /min Zurdo NILL [facility] [place] 09-26-2023 14:17-0500 Respiratory rate 16 /min Zurdo NILL [facility] [place] 09-26-2023 14:17-0500 Systolic blood pressure 126 mm[Hg] Zurdo NILL [facility] [place] 01-03-2022 15:15-0400 Body height 180.34 cm Mac [place] II Other to be Other 01-03-2022 15:15-0400 Body mass index (BMI) [Ratio] 31.24 kg/m2 Mac Marshal II Other to be Other 01-03-2022 15:15-0400 Body weight 101.61 kg Mac Marshal II Other to be Other 10-03-2021 15:30-0500 Body height 180.34 cm Mac [place] II Other to be Other 10-03-2021 15:30-0500 Body mass index (BMI) [Ratio] 31.67 kg/m2 Mac [place] II Other to be Other 10-03-2021 15:30-0500 Body weight 103.01 kg Mac Ngle II Other to be Other 08-24-2021 10:30-0500 Body height 180.34 cm Mac Marinisle II Other to be Other 08-24-2021 10:30-0500 Body mass index (BMI) [Ratio] 31.67 kg/m2 Mac Ngle II Other to be Other 08-24-2021 10:30-0500 Body weight 103.01 kg Mac Marinisle II Other to be Other Encounters Encounter Date Encounter Type Care Provider Facility Start: 08-17-2024 ambulatory Mac tamayo II Facility:[facility] Start: 06-21-2024 End: 06-21-2024 ambulatory MD Bianca Kingsley Work Phone: [facility] Work Phone: Start: 06-21-2024 End: 06-21-2024 Patient encounter procedure MD Bianca Kingsley Work Phone: [facility] Work Phone: Start: 11-20-2023 End: 11-20-2023 ambulatory Bianca Kingsley Facility:[facility] Start: 11-05-2023 End: 11-06-2023 ambulatory Zurdo RASHEED Facility:CD:[id number] Start: 09-26-2023 End: 09-27-2023 ambulatory Zurdo R NILL Facility:[facility] Start: 09-26-2023 End: 09-26-2023 Patient encounter procedure Zurdo R CIARAL [facility] Start: 08-29-2023 ambulatory Zurdo NILL Facility:[facility] Start: 10-09-2022 End: 10-09-2022 ambulatory MD Bianca Kingsley Work Phone: [facility] Work Phone: Start: 10-09-2022 End: 10-09-2022 Patient encounter procedure MD Bianca Kingsley Work Phone: [facility] Start: 08-31-2022 End: 08-31-[address] BIANCA KINGSLEY Facility:[facility] Start: 08-13-2022 End: 08-14-[address] BIANCA KINGSLEY Facility:[facility] Start: 01-03-2022 End: 01-03-2022 ambulatory Mac [place] II Other to be Other Start: 01-03-2022 Patient encounter procedure Mac [place] II [facility] Start: 11-22-2021 End: 11-22-2021 ambulatory Mac [place] II Other to be Other Start: 11-22-2021 Patient encounter procedure Mac Marshal II [facility] Start: 10-24-2021 End: 10-24-2021 ambulatory Mac [place] II Other to be Other Start: 10-24-2021 Postop follow up vis it related to original px Mac [place] II [facility] Start: 10-03-2021 End: 10-03-2021 ambulatory Mac Marshal II Other to be Other Start: 10-03-2021 Encounter for other preprocedural examination Mac [place] II [facility] Start: 10-03-2021 Office outpatient vi sit 25 minutes Mac [place] II [facility] Start: 08-24-2021 End: 08-24-2021 ambulatory Mac [place] II Other to be Other Start: 08-24-2021 Encounter for other preprocedural examination Mac Araya II [facility] Start: 08-24-2021 Office outpatient ne w 45 minutes Mac Araya II [facility] Start: 05-05-2017 End: 05-05-2017 Emergency department patient visit ROHIT Mckenzie [facility] Procedures Date Procedure Procedure Detail Performing Clinician Start: 06-21-2024 Plain X-ray of right hip MD Bianca Kingsley Work Phone: Start: 06-21-2024 X-ray of left knee, four views MD Bianca Kingsley Work Phone: Start: 10-09-2022 Plain X-ray of right hip MD Bianca Kingsley Work Phone: Start: 08-13-[address] SHELLEY KINGSLEY Comment on above: Performed By: #### [facility] #### [facility] [address] [place] [address] Dr. Indu Woodall Start: 08-26-2014 Colonoscopy Zurdo BECKWITH Repair of joint of r ight hip Zurdo RASHEED Plan of Treatment Date Care Activity Detail Author Start: 06-21-2024 Plain X-ray of right hip XR hip RT min 2V(w/wo pelvis)* [facility] Start: 06-21-2024 X-ray of left knee, four views XR knee LT 4V* [facility] Start: 06-21-2024 XR Hip - right 2 Views [facility] Start: 06-21-2024 XR Knee - left 4 Views [facility] Immunizations Immunization Date Immunization Notes Care Provider Fa [facility] 08-12-2023 influenza virus vaccine, unspecified formulation Zurdo RASHEED [facility] [place] 08-14-2021 COVID-19 mRNA Comirnaty (Pfizer) MD Bianca Kingsley Work Phone: [facility] 12-12-2020 COVID-19 mRNA Comirnatdanika (Pfizer) MD Bianca Kingsley Work Phone: [facility] 11-20-2020 COVID-19 Shawn Umanzor (Pfizer) MD Bianca Kingsley Work Phone: [facility] Payers Date Payer Category Payer Self-pay [id number] 1961 Medicare [id number] 2.1 [id number] 1961 Unknown [id number] 1955 Unknown [id number] 2.16.84 [id number] 1955 Unknown [id number] 2.16.84 [id number] 1955 Unknown [id number] 2.16.8 [id number] 1955 Unknown [id number] 2.16.8 [id number] Unknown [id number] 2.16.8 [id number] Unknown [id number] 2.16.8 [id number] Unknown [id number] 2.16.8 [id number] Social History Date Type Detail Facility Sex Assigned At [facility] Start: 10-08-2021 End: 10-08-2021 Tobacco smoking status NHIS Never smoked tobacco (finding) [facility] Start: 1955 Sex Assigned At Male F [facility] Tobacco smoking status Never Gener [facility] [place] Medical Equipment Procedure Code Equipment Code Equipment Origin al Text Equipment Identifier Dates Arthroplasty, hip, total, anterior approach Acetabular shell [id number] FDA Start: 10-08-2021 Arthroplasty, hip, total, anterior approach Ceramic femoral head prosthesis ()[id number] FDA Start: 10-08-2021 Arthroplasty, hip, total, anterior approach Coated hip femur prosthesis, modular [id number] FDA Start: 10-08-2021 Arthroplasty, hip, total, anterior approach Non-constrained polyethylene acetabular liner ()[id number] FDA Start: 10-08-2021 Functional Status Date Assessment Result Facility 09-26-2023 Functional Status N/A [facility] Clinical Notes 08-24-2021 to 09-26-2023 Note Date & Type Note Facility 09-26-2023 Note Chief Complaint consultation for colonoscopy HPI Staff 67 year old male presents on [...] SARS-CoV-2 (COVID-19) mRNA BNT-162b2 vax 11/20/2020 Recorded [facility] Comment on above: Result Comment: Elec tronically Signed By: KATHYA RUFF, Zurdo Dan.duran\Date and Time Signed: 09/26/23 14:58 EST 01-03-2022 Evaluation note Encounter Date Diagnosis Assessment Notes Dec, Status post right hip replacement (ICD-10 - Z96.641) Dec, Other [facility] [place] 10/08[place]2021 Doing well Discussed post-op dental prophylaxis. Shared decision made to continue prophylactic antibiotics indefinitely. Follow-up at 1 year post-op for repeat examination and repeat x-rays. Patient instructed to call with any questions or concerns. to be Other 03-10-2022 Evaluation note* Encounter Date Diagnosis Assessment Notes Treatment Notes Treatment Clinical Notes Nov, Status post right hip replacement (ICD-10 - Z96.641) Nov, Other [facility] at [facility] [place] 10/08/2021 Doing well Patient may continue increasing activities as tolerated. Continue taking fsvt-pzw-mfnxood anti-inflammatories as needed for assistance with swelling and pain associated with the operative extremity. We did discuss prophylactic antibiotics for any invasive procedures and made the mutual decision to take antibiotics prior to invasive procedures moving forward. Follow-up in 6 weeks for repeat examination and repeat x-rays. to be Other 02-09-2022 Evaluation note* Encounter Date Diagnosis Assessment Notes Treatment Notes Treatment Clinical Notes Oct, Status post right hip replacement (ICD-10 - Z96.641) Oct, Other [facility] at [facility] on 10/08/2021 Doing well Patient may continue [...] examination and x-rays of the right hip. to be Other 01-19-2022 Evaluation note* Encounter Date Diagnosis [...] pathological fracture (ICD-10 - M81.0) Sep, On shelter drug therapy (ICD-10 - Z79.899) Sep, Other 1. Right GEMA Home Medications - DVT prophylaxis: Aspirin - NSAID: Celebrex - Disposition: Same-day discharge Joints Meeting Checklist - Pharmacy: [facility] - Approach/Technique : Anterior - Implants: Avenir Complete; G7 - Anesthesia: General - Blocks: Fascia iliac a - Preop Antibiotics: Ancef - TXA: Yes, systemic - Positioning/OR Bed: Supine on [place] bed - Intraop X-ray: Yes - [place]: [...] elected to proceed with the above surgery. to be Other 12-10-2021 Evaluation note* Encounter Date Diagnosis Assessment Notes Treatment Notes Treatment Clinical Notes Aug, Primary osteoarthritis of right hip (ICD-10 - M16.11) Aug, Pre-op examination (ICD-10 - Z01.818) Aug, Age-related osteoporosis without current pathological fracture (ICD-10 - M81.0) Aug, On shelter drug therapy (ICD-10 - Z79.899) Aug, Other 1. Right GEMA - DVT prophylaxis: Aspirin - Antibiotics: Ancef - NSAID: Celebrex - Implants: Avenir Complete; G7 - Disposition: Same day discharge 2. Preop screening labs will be ordered including: - hemoglobin: 14.2 at [place] on 08/07/2021 - serum albumin: 4.0 at [place] on 08/07/2021 - 25-OH Vit D - HgbA1c: 5.5 at [place] on 08/07/2021 - serum cotinine - MRSA [...] or absent clearances could delay their surgery. to be Other Evaluation + Plan note No data available for this section [facility] [place] Evaluation noteNo assessment information available [facility] Work Phone: Evaluation note* Diagnosis Onset Date Resolution Status History of total right hip replacement acute Iliotibial band syndrome, left leg acute [facility] Work Phone: Hisunfp general Narrative - Reported* Type Description Date Medical History hypertension to be Other History general Narrative - Reported* Type Description Date Medical History hypertension Surgical History RTHA to be Other Hospital Discharge instructions No data available for this section [facility] [place] Progress note No data available for this section [facility] [place] Summary Purpose Family History No Family History Records Found Relationship Condition Age at Onset Recorded Date/T masha father Malignant neoplasm of colon Unknown Pulmonary emphysema Unknown Glaucoma Unknown Not Specified Osteoporosis Unknown Hypertension Unknown Diabetes mellitus Unknown Relationship Condition Age at Onset Recorded Date/T masha father Malignant neoplasm of colon Unknown Pulmonary emphysema Unknown Glaucoma Unknown mother Osteoporosis Unknown Hypertension Unknown Diabetes mellitus Unknown father Family history of colon cancer Unknown Unknown Malignant neoplasm Unknown mother Diabetes mellitus Unknown Advance Directives No Advanced Directives Records Found Advance Directive Response Recorded Date/ Time Advance Directives No August 10:56am Advance Directive Response Recorded Date/ Time Advance Directives No August 11:56am Chief Complaint and Reason for Visit Chief Complaint RTHA PAIN AFTER FALL M25.562 - Pain in left knee Z96.641 - Presence of Reason for Visit History of total rig ht hip replacement Iliotibial band syndrome, left leg Chief Complaint RTHA PAIN AFTER FALL M25.562 Z96.641 Reason for Visit History of total rig ht hip replacement Iliotibial band syndrome, left leg Additional Source Comments (unrecognized sect ion and content) No Status Records FoundNo Status Records FoundNo Status Records FoundNo Status Records Found INFORMATION SOURCE (unrecogn ized section and content) DATE CREATED AUTHOR 03/11/2018 [facility] DATE CREATED AUTHOR AUTHOR'S ORGANIZ ATION 09/11/2022 [facility] DATE CREATED AUTHOR AUTHOR'S ORGANIZ ATION 11/14/2023 [facility] DATE CREATED AUTHOR AUTHOR'S ORGANIZ ATION 08/19/2024 [facility] REASON FOR VISIT (unrecogniz ed section and content) Right Hip PainH&PRecheck Rig ht HipRecheck Right HipRecheck Right Hip Care Teams (unrecognized sec tion and content) Team Status: Inactive Member Role Status Geraldo Kingsley MD Primary Care Provider Active Mac Araya II, MD Attending Provider Active Team Status: Active Member Role Status Geraldo Kingsley MD Primary Care Provider Active Team Status: Inactive Member Role Status Geraldo Kingsley MD Primary Care Provider Active Start: June 21, 2024 End: June 21, 2024 Mac Aarya II, MD Attending Provider Active Start: June 21, 2024 End: June 21, 2024 Team Status: Active Member Role Status Geraldo Kingsley MD Primary Care Provider Active Start: June 21, 2024 Mac Araya II, MD Attending Provider Active Start: June 21, 2024 Goals (unrecognized section and content) Goals may [...] BE BASED ON THE PRIMARY CLINICAL RECORDS. [facility] [employer]formerly [employer] [facility]. provides no warranty or guarantee of the accuracy or completeness of information in this document.
[2024-09-03 09:20] LABS: Basophils Percent Auto 1.1 % (0.2-2.0); Eosinophils Absolute Auto 0.2 10^3/uL (0.0-0.7); Eosinophils Percent Auto 5.8 % (0.9-7.0); Hematocrit 41.6 % (42.0-54.0); Hemoglobin 13.7 g/dL (14.0-18.0); Immature Granulocytes Abs Auto 0.01 10^3/uL (0.00-0.03); Immature Granulocytes Pct Auto 0.3 % (0.0-0.5); Lymphocytes Absolute Auto 1.2 10^3/uL (1.2-3.8); Lymphocytes Percent Auto 32.6 % (20.5-60.0); Mean Corpuscular HGB Conc 32.9 g/dL (29.9-35.2); Mean Corpuscular Hemoglobin 31.8 pg (25.9-34.0); Mean Corpuscular Volume 96.5 fL (80.0-94.0); Mean Platelet Volume 9.7 fL (9.5-13.5); Monocytes Absolute Auto 0.5 10^3/uL (0.3-0.8); Neutrophils Absolute Auto 1.8 10^3/uL (1.4-6.5); Neutrophils Percent Auto 47.2 % (43.0-75.0); Platelet Count 177 10^3/uL (150-450); Red Blood Count 4.31 10^6/uL (4.70-6.10); Red Cell Distribution Width 12.7 % (11.0-15.0); White Blood Count 3.8 10^3/uL (4.0-11.0)
[2024-09-03 09:36] LABS: Estimated Average Glucose 123 mg/dL; Glycohemoglobin A1C 5.9 % (4.5-6.2)
[2024-09-03 10:38] LABS: Alanine Aminotransferase 47 U/L (16-63); Albumin Globulin Ratio 1.3; Albumin Level 3.9 g/dL (3.4-5.0); Alkaline Phosphatase 98 U/L (46-116); Anion Gap 9.6; Aspartate Amino Transferase 30 U/L (15-37); BUN Creatinine Ratio 14.5; Carbon Dioxide 31.7 mmol/L (21.0-32.0); Chloride 105 mmol/L (98-107); Chol HDL Ratio 2.4; Cholesterol 133 mg/dL (<=200); Estimated GFR (African America >60 (>=60 mL/min/1.73m^2); Estimated GFR (Non-African Ame >60 (>=60 mL/min/1.73m^2); Free T3 2.72 pg/mL (2.18-3.98); Globulin 2.9 g/dL; Glucose 100 mg/dL (74-106); HDL Cholesterol 55 mg/dL (40-60); LDL Cholesterol Calculated 70.4 mg/dL; Potassium 4.3 mmol/L (3.5-5.1); Sodium 142 mmol/L (136-145); Total Protein 6.8 g/dL (6.4-8.2); Triglycerides 38 mg/dL (<=150); VLDL CHOLESTEROL 7.6 mg/dL
[2024-09-03 10:45] LABS: Prostate Specific Antigen Scrn 2.38 ng/mL (<=4.00)
== END 2024-09-03 08:57 | disposition home or self-care (01) ==
LOC: LAB 08:58
PROVIDERS: PCP Family Medicine; Visit Provider Family Medicine
DX: E78.5 Hyperlipidemia, unspecified (principal); I10 Essential (primary) hypertension; E03.9 Hypothyroidism, unspecified; M23.90 Unspecified internal derangement of unspecified knee; R53.83 Other fatigue; R73.09 Other abnormal glucose; Z12.5 Encounter for screening for malignant neoplasm of prostate
CPT/HCPCS: 36415; 80053; 80061; 83036; 84436; 84443; 84481; 85025; G0103

== ENCOUNTER 2025-09-06 09:40 | Outpatient (OUT) | payer MEDICARE, SELFPAY ==
--- OUTSIDE RECORDS SUMMARY | 2025-09-06 09:46 | XMS_ITS | Patient Health Record ---
Author Organization [facility] [place] Address [address] [place] [address] Care Team Providers Care Flat Sorter Processor Name Role Phone Sancho Alvin Primary Care Provider [phone] Allergies Allergen (clinical drug ingredient) Drug/Non Drug Allergy documented on EMR Reaction Allergy Type Onset Date Status levofloxacin Levofloxacin hives Drug Allergy ActivetetracyclineTetracyclinehivesDrug AllergyActive Reason For Referral Diagnosis 1 Sebaceous cyst (L72. 3) Referral Organization [facility] Medicine Referring Provider First Name Alvin Referring Provider Last Name Maninderdanika Referring Provider Speciality Family Med antonieta Referred Provider Zurdo Chambers Referred Provider Specialty General Surg aj Referral Priority Routine Medications Medication SIG (Take, Route, Frequency, Duration) Notes Start Date End Date Status Liothyronine Sodium 5 MCG TAKE 1 TABLET BY MOUTH EVERY DAY ON EMPTY STOMACH FOR 30 DAYS; Duration: 30 days ActiveLisinopril 40 MGTAKE 1 TABLET BY MOUTH EVERY DAY; Duration: 90Active Diclofenac Sodium 75 MGTAKE 1 TABLET BY MOUTH TWICE A DAY FOR 30 DAYS; Duration: 90Active Social History Tobacco Use: Social History Observation Description Date Details (start date - stop date) Never Smoker NA - NA Tobacco Use/Smoking Question Answer Notes Patient is a nonsmoker Alcohol Screen (Audit-C) Question Answer Notes Did you have a drink containing alcohol in the p ast year? No Yevnwr9SxgxaikwmqsaddDcsnajilMIIAC-F (Standard) Question Answer Notes Did you have a drink containing alcohol in the p ast year? No Kqkrxv5DjemuzkkteykhjSbmjzuze Problems Problem Type SNOMED Code ICD Code Onset Dates Problem Status W/U Status Risk Notes Problem Hypothyroid (69060609) Hypothyroid (E03.9 ) ActiveconfirmedProblemEssential hypertension (02917424)Benign essential HTN (I10)ActiveconfirmedProblemArthralgia (58013969)Arthralgia (M25.50)Active confirmedProblemAllergic contact dermatitis (064121373)Contact allergic reaction (L23.9)ActiveconfirmedProblemErectile dysfunction (disorder) (732156869) Impotence (N52.9)ActiveconfirmedProblemInternal derangement of knee (72680005) Internal derangement of knee (M23.90)ActiveconfirmedProblemBenign neoplasm of colon (30599432)Adenoma of colon (D12.6)ActiveconfirmedProblemCOVID-19 (471697488)COVID-19 (U07.1)ActiveconfirmedProblemMalignant melanoma of skin of right shoulder (729436746150313)Malignant melanoma of skin of right shoulder (C43.61)Activeconfirmed Vital Signs Temperature 96.8 degrees Fahrenheit 06/22/2025 Blood pressure fuekuiill65 mm Hg09/06/20250616Jbfbdd40 in09/06/2025lood pressure ieisiwmu532 mm Hg09/06/20259680Omnkia357.0 lbs111/07/2024BMI31.46 kg/m209/06/2025 Encounters Encounter Location Date Provider Diagnosis [address] [address] 06/22/2025 Alvin Hoy Acute bronchitis, unspecified organism J20.9 ; Sebaceous cyst L72.3 and Arthralgia M25.[address] [address] 09/06/2025 Alvin Kingsley Benign essential HTN I10 ; Arthralgia M25.50 ; Hypothyroid E03.9 and Impotence N52.[address] [address] 01/19/2025 Alvin Sancho Assessments Encounter Date Diagnosis (ICD Code) Assessment Notes Treatment Notes Treatment Clinical Notes Section Notes 06/22/2025 Sebaceous cyst (ICD-10 - L72.3) 06/22/2025ute bronchitis, unspecified organism (ICD-10 - J20.9)Rest and drink more liquids, especially water. You may use a humidifier or vaporizer to help keep the drainage moist. Syxj-chg-sqjqqao Nasal Saline may help the stuffy and runny nose. Use Ibuprofen and or Tylenol as needed for fever, chills, body aches or pain. Children 5 years old should not be given xdjj-coa-brshivv cough and cold medications such as guaifenesin and dextromethorphan. If you're over age 5, you may try pazk-cfl-abqhlkf cold medications such as guaifenesin and dextromethorphan, or multi-symptom cold reliever such as Dayquil to help reduce the symptoms. Antibiotics have been prescribed. You should take these until completed and follow the directions. Antibiotics can sometimescause upset stomach, and in rare cases, serious allergic reactions or serious gastrointestinal problems. If you start having severe abdominal pain, severe vomiting, or bloody diarrhea, you should be reevaluated by your physician or urgent care immediately. Follow up with your Primary Care Provider or return to clinic if symptoms do not improve within 3-5 days. If you develop severe symptoms such as shortness of breath, repeated vomiting, coughing up blood, or chest pain you should go to the emergency room or call 48162enign essential HTN (ICD-10 - I10)5Arthralgia (ICD-10 - M25.50)09/06/2025 Hypothyroid (ICD-10 - E03.9)5Arthralgia (ICD-10 - M25.50)09/06/2025 Impotence (ICD-10 - N52.9) Plan Of Treatment Pending Test Test Name Order Date CMP (COMPLETE METABOLIC PANEL) 3 CMP (COMPLETE METABOLIC PANEL) 4 HEMOGLOBIN A1C (GLYCO) 09/06/2025 HEMOGLOBIN A1C (GLYCO) 08/29/2023 HEMOGLOBIN A1C (GLYCO) 09/03/2024 INSULIN, TOTAL 09/06/2025 LIPID PANEL (CHOL/TRIG/HDL/LDL) 09/06/20 25 LIPID PANEL (CHOL/TRIG/HDL/LDL) 09/03/20 24 LIPID PANEL (CHOL/TRIG/HDL/LDL) 08/29/20 23 CBC WITH DIFF (EXP 07/2025) 08/29/2023 CBC WITH DIFF (EXP 07/2025) 09/03/2024 PSA, PROSTATE-SPECIFIC ANTIGEN 3 URIC ACID 09/06/2025 CBC W/AUTO DIFF 08/29/2023 PSA, TOTAL 09/03/2024 STOOL OCCULT BLOOD 09/06/2025 THYROID PROFILE WITH TSH 09/10/2023 THYROID PANEL (T4/TSH/FREE T3) 3 THYROID PANEL (T4/TSH/FREE T3) 5 THYROID PANEL (T4/TSH/FREE T3) 4 THYROID PANEL (T4/TSH/FREE T3) 3 PSA, SCREENING 09/06/2025 CMP (COMP MET SHIPLEY) w/eGFR CKD-EPI 2024 CBC WITH DIFF 09/06/2025 Insurance Providers Payer Name Payer Address Payer Phone Subscriber Number Group Number Insured Name Patient Relationship to Insured Coverage Start Date Coverage End Date [place] [address] [place] [address] [id number] AltArnaldo - patient is the [facility] [employer] INSURANCEPO [address] [address] [place] [id number] - patient is the insured Medical (General) History Medical History History ICD Code Benign essential HTN I10 Arthralgia M25.50 Adenoma of colon D12.6 Malignant melanoma of skin of right shou lder C43.61 Surgical History Surgery Date(Month/Year) Colonoscopy 10/2023 colonoscopy with polyp excision 08/2014 excision melanoma right [place] skin 0 09/2019 total right hip replacement 09/2021
--- OUTSIDE RECORDS SUMMARY | 2025-09-06 09:46 | XMS_ITS | Clinical Summary ---
Author Organization [facility] Address [address] [place] [address], [address] [place] [address] Care Team Providers Care Rope Walker Name Role Phone Unavailable Primary Care Provider Unavailabl e Allergies Active AllergyReactionsCriticalityNoted DateCommentsTetracyclines & Related 07/21/2011 Medications MedicationSigDispense QuantityRefillsLast FilledStart DateEnd DateStatus fexofenadine-pseudoephedrine (ZI-D 12 HOUR) 60-120 MG per tablet Take 1 tablet by mouth 2 times daily.Active Active Problems ProblemNoted DateDiagnosed DateAllergic clgefbuq97/06/2011 Social History Tobacco UseTypesPacks/DayYears UsedDateSmoking Tobacco: Never AssessedSex and Gender InformationValueDate RecordedSex Assigned at BirthNot on fileLegal Sex Male10/25/2012 11:44 AM ESTGender IdentityNot on fileSexual OrientationNot on file Plan of Treatment Not on file
[2025-09-06 10:24] LABS: Hematocrit 41.1 % (42.0-54.0); Hemoglobin 13.4 g/dL (14.0-18.0); Immature Granulocytes Abs Auto 0.01 10^3/uL (0.00-0.03); Immature Granulocytes Pct Auto 0.2 % (0.0-0.5); Lymphocytes Absolute Auto 1.3 10^3/uL (1.2-3.8); Mean Corpuscular HGB Conc 32.6 g/dL (29.9-35.2); Mean Corpuscular Hemoglobin 31.8 pg (25.9-34.0); Mean Corpuscular Volume 97.4 fL (80.0-94.0); Platelet Count 176 10^3/uL (150-450); Red Blood Count 4.22 10^6/uL (4.70-6.10); White Blood Count 4.1 10^3/uL (4.0-11.0)
[2025-09-06 15:56] LABS: Alanine Aminotransferase 59 U/L (16-63); Albumin Globulin Ratio 1.4; Albumin Level 4.0 g/dL (3.4-5.0); Alkaline Phosphatase 96 U/L (46-116); Anion Gap 12.6; Aspartate Amino Transferase 33 U/L (15-37); Blood Urea Nitrogen 19.0 mg/dL (7.0-18.0); Calcium 9.2 mg/dL (8.5-10.1); Carbon Dioxide 30.2 mmol/L (21.0-32.0); Chloride 105 mmol/L (98-107); Cholesterol 141 mg/dL (<=200); Estimated GFR (African America >60 (>=60 mL/min/1.73m^2); Estimated GFR (Non-African Ame >60 (>=60 mL/min/1.73m^2); Free T3 2.77 pg/mL (2.18-3.98); Globulin 2.8 g/dL; Glucose 102 mg/dL (74-106); HDL Cholesterol 49 mg/dL (40-60); Potassium 4.8 mmol/L (3.5-5.1); Sodium 143 mmol/L (136-145); Thyroid Stimulating Hormone 1.868 uIU/mL (0.358-3.740); Total Protein 6.8 g/dL (6.4-8.2); Triglycerides 55 mg/dL (<=150); Uric Acid 5.4 mg/dL (3.5-7.2); VLDL CHOLESTEROL 11.0 mg/dL
== END 2025-09-06 09:41 | disposition home or self-care (01) ==
LOC: LAB 09:43
PROVIDERS: PCP Family Medicine; Visit Provider Family Medicine
DX: E78.5 Hyperlipidemia, unspecified (principal); I10 Essential (primary) hypertension; M25.50 Pain in unspecified joint; E03.9 Hypothyroidism, unspecified; N52.9 Male erectile dysfunction, unspecified; R73.09 Other abnormal glucose; Z12.12 Encounter for screening for malignant neoplasm of rectum; Z12.5 Encounter for screening for malignant neoplasm of prostate
CPT/HCPCS: 36415; 80053; 80061; 83036; 83525; 84436; 84443; 84481; 84550; 85025; G0103